=== PATIENT | female | born 1960 | race African-American/Black ===

== ENCOUNTER 2017-01-30 13:05 | Inpatient (IN) | payer OTHER ==
[2017-01-30 14:05] VITALS: BMI 20.5
--- NOTE | 2017-01-30 17:07 | HP ---
Admission [facility] Chief Complaint: REHAB TX FOR DRUG ADDICTION Allergies/Adverse Reactions: Allergies Allergy/AdvReac Type Severity Reaction Status Date / Time No Known Allergies Allergy Verified 01/30/17 16:54 History of Present Illness: 56 Y/O AA/FEMALE WITH A HX OF COCAINE,MARIJUANA AND PCP DEPENDENCE SEEKING DETOX TX. Exam Limitations: No Limitations - Ebola screening Have you traveled outside of the country in the last 21 days: No Have you had contact with anyone from an Ebola affected area: No Have you been sick,other than usual withdrawal symptoms: No Do you have a fever: No - Review of Systems Constitutional: Chills, Loss of Appetite, Night Sweats, Changes in sleep, Unintentional Wgt. Loss EENT: reports: Blurred Vision, Nose Congestion, Dental Problems (MISSING TEETH) Respiratory: reports: Shortness of Breath (HX ASTHMA), Wheezing Cardiac: reports: Lightheadedness GI: reports: Constipated, Poor Appetite, Poor Fluid Intake, Abdominal cramping : reports: No Symptoms Reported Musculoskeletal: reports: No Symptoms Reported Integumentary: reports: Dryness Neuro: reports: Headache, Seizure (LAST WAS A MONTH AGO), Unsteady Gait Endocrine: reports: No Symptoms Reported Hematology: reports: No Symptoms Reported Psychiatric: reports: Orientated x3, Anxious, Depressed Other Systems: Reviewed and Negative Patient History - Patient Medical History Hx Anemia: No Hx Asthma: Yes Hx Chronic Obstructive Pulmonary Disease (COPD): No Hx Cardiac Disorders: No Hx Hypertension: No Hx Hypercholesterolemia: No HX Cerebrovascular Accident: No Hx Seizures: Yes (RECENT EPISODE-LAST MONTH) Hx Diabetes: No Hx Gastrointestinal Disorders: No Hx Genitourinary Disorders: Yes (HX UTI) Hx Sexually Transmitted Disorders: Yes (HX GONORRHEA WITH TX) Hx Renal Disease (ESRD): No Hx Thyroid Disease: No Hx Human Immunodeficiency Virus (HIV): Yes (SINCE 1997;ON MEDS) Hx Hepatitis C: No Hx Depression: Yes Hx Suicide Attempt: No (DENIES) Hx Bipolar Disorder: No Hx Schizophrenia: No - Patient Surgical History Past Surgical History: Yes Hx Neurologic Surgery: No Hx Cataract Extraction: No Hx Cardiac Surgery: No Hx Lung Surgery: No Hx Breast Surgery: No Hx Breast Biopsy: No Hx Abdominal Surgery: No Hx Appendectomy: No Hx Cholecystectomy: No Hx Genitourinary Surgery: No Hx Section: No Hx Orthopedic Surgery: No Hx Hysterectomy: No Other Surgical History: TUBAL LIGATION 04/1997 Anesthesia Reaction: No - PPD History Previous Implant?: Yes Documented Results: Negative w/o proof Implanted On Prior [facility] Admission?: No PPD to be Administered?: Yes - Reproductive History Patient is a Female of Child Bearing Age (11 -55 yrs old): Yes LMP comment: 4 YRS AGO Patient : No - Smoking Cessation Smoking history: Current every day smoker Have you smoked in the past 12 months: Yes Aproximately how many cigarettes per day: 4 Hx Chewing Tobacco Use: No Initiated information on smoking cessation: Yes 'Breaking Loose' booklet given: 01/30/17 - Substance & Tx. History Hx Alcohol Use: No Hx Substance Use: Yes (COCAINE/MARIJUANA) Substance Use Type: Cocaine, Marijuana Hx Substance Use Treatment: Yes (LAST TX AT [facility]) - Substances Abused Crack Route: Smoking Frequency: Daily Amount used: 9-10 BAGS Age of first use: 25 Date of Last Use: 01/28/17 Marijuana/Hashish Route: Smoking Frequency: Daily Amount used: 3-9 BLUNTS Age of first use: 12 Date of Last Use: 01/29/17 Family Disease History - Family Disease History Family History: Denies Admission Physical Exam S - Vital Signs Vital Signs: Vital Signs - 24 hr 01/30/17 14:00 Temperature 97.9 F Pulse Rate 70 Respiratory 18 Rate Blood Pressure 103/74 - Physical General Appearance: Yes: No Apparent Distress, Moderate Distress, Irritable, Anxious HEENTM: Yes: EOMI, Normocephalic, EMANUEL, Nasal Congestion Respiratory: Yes: Chest Non-Tender, Lungs Clear, Normal Breath Sounds Neck: Yes: No masses,lesions,Nodules, Supple, Trachea in good position Breast: Yes: Breast Exam Deferred Cardiology: Yes: Regular Rhythm, Regular Rate, S1, S2 Abdominal: Yes: Normal Bowel Sounds, Non Tender, Flat Genitourinary: Yes: Other (N/C) Musculoskeletal: Yes: Within Normal Limits Extremities: Yes: Normal Range of Motion, Non-Tender 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: 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 II-XII NML intact, Fully Oriented, Alert, Motor Strength 5/5 Integumentary: Yes: Dry, Warm Lymphatic: Yes: Within Normal Limits - Diagnostic (1) History of constipation Current Visit: Yes Status: Chronic (2) Cannabis dependence, uncomplicated Current Visit: Yes Status: Acute (3) Cocaine dependence, uncomplicated Current Visit: Yes Status: Acute (4) Asthma Current Visit: Yes Status: Chronic Qualifiers: Asthma severity: unspecified severity Asthma persistence: unspecified Asthma complication type: unspecified Qualified Code(s): J45.909 - Unspecified asthma, uncomplicated (5) HIV (human immunodeficiency virus infection) Current Visit: Yes Status: Chronic (6) Rhinitis, allergic, with asthma, without status asthmaticus Current Visit: Yes Status: Chronic Qualifiers: Asthma severity: mild Asthma persistence: persistent [facility] - Detox or Rehab Claeared for Rehab Admission: Yes [facility] Breath Alcohol Content Breath Alcohol Content: 0 Urine Pregancy Test - Result Urine Test Results: Negative- NO Line Present Urine Drug Screen - Results Drug Screen Negative: No Urine Drug Screen Results: THC-Marijuana, MAMTA-Cocaine, PCP-Phencyclidine Inpatient Rehab Admission - Initial Determination Are CD services needed?: Yes Free of communicable disease: Yes Not in need of hospitalization: Yes - Rehab Admission Criteria Patient is meeting Inpatient Rehab admission criteria:: Yes
[2017-01-30] MEDS ORDERED: MENTHOL/PHENOL 1 EACH UD MM PRN (18:01)
[2017-01-30] MEDS ORDERED: P-EPHED 60MG/TRIPROLIDI 2.5MG TABLET PO PRN (18:01)
[2017-01-30] MEDS ORDERED: IBUPROFEN 400 MG TABLET (FP) PO PRN (18:01)
[2017-01-30] MEDS ORDERED: NICOTINE POLACRILEX 2 MG GUM BC PRN (18:01)
[2017-01-30] MEDS ORDERED: LOPERAMIDE HCL 2 MG CAPSULE PO PRN (18:01)
[2017-01-30] MEDS ORDERED: MAG HYDROX/AL HYDROX/SIMETH 30 ML UNIT-DOSE CUP PO PRN (18:01)
[2017-01-30] MEDS ORDERED: ACETAMINOPHEN 325 MG TABLET (FP) PO PRN (18:01)
[2017-01-30] MEDS ORDERED: MAGNESIUM CITRATE 300 ML BOTTLE PO PRN (18:01)
[2017-01-30] MEDS ORDERED: guaiFENesin/D-METHORPHAN HB 10 ML UNIT-DOSE CUPS PO PRN (18:01)
[2017-01-30] MEDS ORDERED: TUBERCULIN PPD 5 TU/0.1ML VIAL ID ONE (20:02)
[2017-01-30] MEDS: PATIENT'S OWN MEDICATION (NON-FORMULARY) (Cetirizine Hcl [Cetirizine Hcl] 10 MG) PO SCH (21:28)
[2017-01-30] MEDS: EMTRICITABINE/TENOFOV ALAFENAM (DESCOVY) TABLET PO SCH (21:48)
[2017-01-30] MEDS: THIAMINE HCL 100 MG TABLET (FP) PO SCH (21:49)
[2017-01-30] MEDS: NICOTINE 14 MG/24 HOURS TOPICAL PATCH TD SCH (21:49)
[2017-01-30] MEDS: DOLUTEGRAVIR SODIUM 50 MG TABLET PO SCH (21:49)
[2017-01-31 01:29] LABS: URINE APPEARANCE SLCLOUDY; URINE BILIRUBIN NEGATIVE (NEGATIVE); URINE BLOOD NEGATIVE (NEGATIVE); URINE COLOR YELLOW; URINE GLUCOSE (UA) NEGATIVE (NEGATIVE); URINE KETONE NEGATIVE (NEGATIVE); URINE LEUK ESTERASE NEGATIVE (NEGATIVE); URINE NITRITE NEGATIVE (NEGATIVE); URINE PROTEIN NEGATIVE (NEGATIVE); URINE UROBILINOGEN NEGATIVE mg/dL (0.2-1.0)
[2017-01-31] MEDS: lamoTRIgine 100 MG TABLET (FP) PO SCH ×3 (06:18→21:29)
[2017-01-31] MEDS: DOLUTEGRAVIR SODIUM 50 MG TABLET PO SCH (09:05)
[2017-01-31] MEDS: EMTRICITABINE/TENOFOV ALAFENAM (DESCOVY) TABLET PO SCH (09:05)
[2017-01-31] MEDS: PRENATAL VITAMINS W/ FOLIC ACID TABLET (FP) PO SCH (09:06)
[2017-01-31] MEDS: NICOTINE 14 MG/24 HOURS TOPICAL PATCH TD SCH (09:07)
[2017-01-31] MEDS: PATIENT'S OWN MEDICATION (NON-FORMULARY) (Cetirizine Hcl [Cetirizine Hcl] 10 MG) PO SCH (09:26)
[2017-01-31 09:59] LABS: URINE LEUK ESTERASE Negative (NEGATIVE)
[2017-01-31 10:04] LABS: MCH 28.1 pg (25.7-33.7); MCHC 31.2 g/dl (32.0-36.0); MEAN CELL VOLUME 89.9 fl (80-96); MEAN PLT VOLUME 9.2 fl (7.5-11.1); PLATELET COUNT 162 K/MM3 (134-434); RDW 15.8 % (11.6-15.6); WHITE BLOOD COUNT 3.6 K/mm3 (4.0-10.0)
--- NOTE | 2017-01-31 10:10 | EKG ---
Test Reason : Blood Pressure : / mmHG Vent. Rate : 058 BPM Atrial Rate : 058 BPM P-R Int : 132 ms QRS Dur : 076 ms QT Int : 404 ms P-R-T Axes : 078 074 059 degrees QTc Int : 396 ms SINUS BRADYCARDIA OTHERWISE NORMAL ECG NO PREVIOUS ECGS AVAILABLE Confirmed by PHYLICIA FERGUSON, MERCY ([id number]) on 01/31/2017 10:09:33 AM Referred By: Confirmed By:MERCY WHATLEY MD
[2017-01-31 10:16] LABS: ALBUMIN 3.6 g/dl (3.4-5.0); ANION GAP 3 (8-16); BILIRUBIN,TOTAL 0.4 mg/dL (0.2-1.0); CALCIUM 8.8 mg/dL (8.5-10.1); CO2 29 mmol/L (21-32); CREATININE 1.1 mg/dL (0.55-1.02); GLUCOSE,RANDOM 86 mg/dL (74-106); SGOT/AST 27 U/L (15-37); SGPT/ALT 26 U/L (12-78); TOT PROT 7.8 g/dl (6.4-8.2)
[2017-01-31 10:17] LABS: ALK PHOS 81 U/L (45-117)
[2017-01-31 10:24] LABS: SICKLE CELL SCREEN NEGATIVE (NEGATIVE)
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
[2017-01-31] MEDS: THIAMINE HCL 100 MG TABLET (FP) PO SCH (21:29)
[2017-02-01] MEDS: lamoTRIgine 100 MG TABLET (FP) PO SCH ×3 (06:04→21:43)
[2017-02-01] MEDS: PATIENT'S OWN MEDICATION (NON-FORMULARY) (Cetirizine Hcl [Cetirizine Hcl] 10 MG) PO SCH (09:56)
[2017-02-01] MEDS: EMTRICITABINE/TENOFOV ALAFENAM (DESCOVY) TABLET PO SCH (09:57)
[2017-02-01] MEDS: DOLUTEGRAVIR SODIUM 50 MG TABLET PO SCH (09:57)
[2017-02-01] MEDS: PRENATAL VITAMINS W/ FOLIC ACID TABLET (FP) PO SCH (09:58)
[2017-02-01] MEDS: NICOTINE 14 MG/24 HOURS TOPICAL PATCH TD SCH (09:58)
[2017-02-01] MEDS: THIAMINE HCL 100 MG TABLET (FP) PO SCH (21:43)
[2017-02-02] MEDS: lamoTRIgine 100 MG TABLET (FP) PO SCH ×3 (06:40→21:49)
[2017-02-02] MEDS: DOLUTEGRAVIR SODIUM 50 MG TABLET PO SCH (10:32)
[2017-02-02] MEDS: EMTRICITABINE/TENOFOV ALAFENAM (DESCOVY) TABLET PO SCH (10:32)
[2017-02-02] MEDS: PATIENT'S OWN MEDICATION (NON-FORMULARY) (Cetirizine Hcl [Cetirizine Hcl] 10 MG) PO SCH (10:32)
[2017-02-02] MEDS: PRENATAL VITAMINS W/ FOLIC ACID TABLET (FP) PO SCH (10:32)
[2017-02-02] MEDS: NICOTINE 14 MG/24 HOURS TOPICAL PATCH TD SCH (10:32)
[2017-02-02] MEDS ORDERED: hydrOXYzine PAMOATE 50 MG CAPSULE (FP) PO PRN (11:09)
--- NOTE | 2017-02-02 11:34 | PN ---
Psychiatric Progress Note Vital Signs: Vital Signs Period Temp Pulse Resp BP Sys/Poole Pulse Ox Last 24 Hr 97.7 F 55 16-16 128/73 Date of Session: 02/02/17 Chief Complaint:: I am anxious,sleep is the problem too. HPI: Patient addressed Cocaine and Cannabis dependence comorbid with substance induced mood disorder. ROS: Significant for Seizure disorder,BA,HIV+. Current Medications: Active Medications Generic Name Dose Route Start Last Admin Trade Name Freq PRN Reason Stop Dose Admin Acetaminophen 650 mg 01/30/17 18:01 Tylenol - PO Q4H PRN PAIN Al Hydroxide/Mg Hydroxide 30 ml 01/30/17 18:01 Mylanta Oral Suspension - PO Q6H PRN DYSPEPSIA Eucalyptus/Menthol/Phenol/Sorbitol 1 each 01/30/17 18:01 Cepastat Lozenge - MM Q4H PRN SORE THROAT Guaifenesin 10 ml 01/30/17 18:01 Robitussin Dm - PO Q6H PRN COUGH Hydroxyzine Pamoate 50 mg 02/02/17 11:09 Vistaril - PO Q4H PRN ANXIETY Ibuprofen 400 mg 01/30/17 18:01 01/31/17 09:05 Motrin - PO 400 mg Q6H PRN Administration SEVERE PAIN Lamotrigine 200 mg 01/31/17 06:00 02/02/17 06:40 Lamictal - PO 200 mg TID MARY Administration Loperamide HCl 4 mg 01/30/17 18:01 Imodium - PO Q6H PRN DIARRHEA Magnesium Citrate 300 ml 01/30/17 18:01 Citroma - PO Q48H PRN CONSTIPATION Magnesium Hydroxide 30 ml 01/30/17 18:01 Milk Of Magnesia - PO DAILY PRN CONSTIPATION Nicotine 14 mg 01/30/17 18:15 02/02/17 10:32 Nicoderm Patch - TD 14 mg DAILY MARY Administration Nicotine Polacrilex 2 mg 01/30/17 18:01 Nicorette Gum - BC Q2H PRN NICOTINE REPLACEMENT RX Non-Formulary Medication 10 mg 01/30/17 18:15 02/02/17 10:32 Cetirizine Hcl [Cetirizine Hcl] PO 10 mg DAILY MARY Administration Olanzapine 2.5 mg 02/02/17 11:15 Zyprexa - PO BID MARY Multivit/Folic Acid/Iron 1 tab 01/31/17 10:00 02/02/17 10:32 Vitamins (Sjr) - PO 1 tab DAILY MARY Administration Thiamine HCl 100 mg 01/30/17 22:00 02/01/17 21:43 Vitamin B1 - PO 100 mg HS MARY Administration Current Side Effect: No Lab tests ordered: No Lab tests reviewed: Yes Provider note:: Chart was revuewed,patient was seen ,treatment plan including medication management has been discussed with the patient.She addressed anxiety during the day and sleeping difficulties.Patient reports that she was taking Zyprexa in the past with good effect. Properties of Zyprexa has been discussed with the patient including side effects,benefits,dose adjustment. Zyprexa 2,5 mg po bid will be started today. Supportive therapy provided. Total face to face time:: 30 Mental Status Exam - Mental Status Exam Alert and Oriented to: Time, Place, Person Cognitive Function: Grossly Intact Patient Appearance: Well Groomed Mood: Anxious Affect: Mood Congruent, Labile Patient Behavior: Cooperative Speech Pattern: Clear Voice Loudness: Normal Thought Process: Goal Oriented Thought Disorder: Not Present Hallucinations: Denies Suicidal Ideation: Denies Homicidal Ideation: Denies Insight/Judgement: Fair Sleep: Difficulty falling asleep Appetite: Good Muscle strength/Tone: Normal Gait/Station: Normal Psychiatric Treatment Plan - Problem List (1) Cannabis dependence, uncomplicated Current Visit: Yes (2) Cocaine dependence, uncomplicated Current Visit: Yes (3) Asthma Current Visit: Yes Qualifiers: Asthma severity: unspecified severity Asthma persistence: unspecified Asthma complication type: unspecified Qualified Code(s): J45.909 - Unspecified asthma, uncomplicated (4) HIV (human immunodeficiency virus infection) Current Visit: Yes (5) Seizure disorder Current Visit: Yes (6) Substance induced mood disorder Current Visit: Yes
[2017-02-02] MEDS ORDERED: PT OWN MED DRAWER 7, Y5N ONE (12:08)
[2017-02-02] MEDS: OLANZapine 2.5 MG TABLET PO SCH ×2 (12:35→21:49)
[2017-02-02] MEDS: THIAMINE HCL 100 MG TABLET (FP) PO SCH (21:49)
[2017-02-03] MEDS: lamoTRIgine 100 MG TABLET (FP) PO SCH ×3 (06:40→21:43)
[2017-02-03] MEDS ORDERED: PT OWN MED DRAWER 7, Y5N ONE (08:49)
[2017-02-03] MEDS: NICOTINE 14 MG/24 HOURS TOPICAL PATCH TD SCH (09:58)
[2017-02-03] MEDS: DOLUTEGRAVIR SODIUM 50 MG TABLET PO SCH (09:58)
[2017-02-03] MEDS: EMTRICITABINE/TENOFOV ALAFENAM (DESCOVY) TABLET PO SCH (09:58)
[2017-02-03] MEDS: OLANZapine 2.5 MG TABLET PO SCH ×2 (09:58→21:43)
[2017-02-03] MEDS: PATIENT'S OWN MEDICATION (NON-FORMULARY) (Cetirizine Hcl [Cetirizine Hcl] 10 MG) PO SCH (09:58)
[2017-02-03] MEDS: PRENATAL VITAMINS W/ FOLIC ACID TABLET (FP) PO SCH (09:58)
[2017-02-03] MEDS: THIAMINE HCL 100 MG TABLET (FP) PO SCH (21:43)
[2017-02-04] MEDS: lamoTRIgine 100 MG TABLET (FP) PO SCH ×3 (06:45→21:43)
[2017-02-04] MEDS: OLANZapine 2.5 MG TABLET PO SCH ×2 (10:13→21:43)
[2017-02-04] MEDS: PATIENT'S OWN MEDICATION (NON-FORMULARY) (Cetirizine Hcl [Cetirizine Hcl] 10 MG) PO SCH (10:13)
[2017-02-04] MEDS: PRENATAL VITAMINS W/ FOLIC ACID TABLET (FP) PO SCH (10:13)
[2017-02-04] MEDS: NICOTINE 14 MG/24 HOURS TOPICAL PATCH TD SCH (10:13)
[2017-02-04] MEDS: EMTRICITABINE/TENOFOV ALAFENAM (DESCOVY) TABLET PO SCH (10:14)
[2017-02-04] MEDS: DOLUTEGRAVIR SODIUM 50 MG TABLET PO SCH (10:14)
[2017-02-04] MEDS ORDERED: PT OWN MED DRAWER 7, Y5N ONE (12:51)
[2017-02-04] MEDS: MAGNESIUM HYDROX 2400MG/30ML ORAL SUSPENSION 30 ML CUP PO PRN (13:41)
[2017-02-04] MEDS: THIAMINE HCL 100 MG TABLET (FP) PO SCH (21:43)
[2017-02-05] MEDS ORDERED: PT OWN MED DRAWER 7, Y5N ONE ×3 (05:53→13:58)
[2017-02-05] MEDS: lamoTRIgine 100 MG TABLET (FP) PO SCH ×3 (06:35→21:38)
[2017-02-05] MEDS: PATIENT'S OWN MEDICATION (NON-FORMULARY) (Cetirizine Hcl [Cetirizine Hcl] 10 MG) PO SCH (10:02)
[2017-02-05] MEDS: OLANZapine 2.5 MG TABLET PO SCH ×2 (10:03→21:37)
[2017-02-05] MEDS: PRENATAL VITAMINS W/ FOLIC ACID TABLET (FP) PO SCH (10:03)
[2017-02-05] MEDS: DOLUTEGRAVIR SODIUM 50 MG TABLET PO SCH (10:03)
[2017-02-05] MEDS: EMTRICITABINE/TENOFOV ALAFENAM (DESCOVY) TABLET PO SCH (10:03)
[2017-02-05] MEDS: NICOTINE 14 MG/24 HOURS TOPICAL PATCH TD SCH (10:03)
[2017-02-05] MEDS: THIAMINE HCL 100 MG TABLET (FP) PO SCH (21:37)
[2017-02-05] MEDS: MAGNESIUM HYDROX 2400MG/30ML ORAL SUSPENSION 30 ML CUP PO PRN (22:22)
[2017-02-06] MEDS: lamoTRIgine 100 MG TABLET (FP) PO SCH ×3 (06:03→21:14)
[2017-02-06] MEDS: EMTRICITABINE/TENOFOV ALAFENAM (DESCOVY) TABLET PO SCH (10:01)
[2017-02-06] MEDS: NICOTINE 14 MG/24 HOURS TOPICAL PATCH TD SCH (10:01)
[2017-02-06] MEDS: PATIENT'S OWN MEDICATION (NON-FORMULARY) (Cetirizine Hcl [Cetirizine Hcl] 10 MG) PO SCH (10:01)
[2017-02-06] MEDS: PRENATAL VITAMINS W/ FOLIC ACID TABLET (FP) PO SCH (10:02)
[2017-02-06] MEDS: DOLUTEGRAVIR SODIUM 50 MG TABLET PO SCH (10:02)
[2017-02-06] MEDS: OLANZapine 2.5 MG TABLET PO SCH ×2 (10:02→21:14)
[2017-02-06] MEDS: THIAMINE HCL 100 MG TABLET (FP) PO SCH (21:14)
[2017-02-07] MEDS: lamoTRIgine 100 MG TABLET (FP) PO SCH (06:25)
[2017-02-07 07:17] VITALS: BP 129/82; PULSE 54; TEMP 97.8
[2017-02-07] MEDS: OLANZapine 2.5 MG TABLET PO SCH (10:20)
[2017-02-07] MEDS: PRENATAL VITAMINS W/ FOLIC ACID TABLET (FP) PO SCH (10:20)
[2017-02-07] MEDS: PATIENT'S OWN MEDICATION (NON-FORMULARY) (Cetirizine Hcl [Cetirizine Hcl] 10 MG) PO SCH (10:20)
[2017-02-07] MEDS: NICOTINE 14 MG/24 HOURS TOPICAL PATCH TD SCH (10:21)
[2017-02-07] MEDS: EMTRICITABINE/TENOFOV ALAFENAM (DESCOVY) TABLET PO SCH (10:21)
[2017-02-07] MEDS: DOLUTEGRAVIR SODIUM 50 MG TABLET PO SCH (10:21)
[2017-02-07] MEDS ORDERED: PT OWN MED DRAWER 7, Y5N ONE (11:47)
--- NOTE | 2017-02-07 11:54 | PN ---
Psychiatric Progress Note Vital Signs: Vital Signs Period Temp Pulse Resp BP Sys/Poole Pulse Ox Last 24 Hr 97.8 F 54 18-18 129/82 Date of Session: 02/07/17 Chief Complaint:: Discharge visit HPI: Patient addressed Alcohol,Cocaine dependence comorbid with Substance induced mood disorder. ROS: Significant for HIV+,BA,Seizure disorder. Current Medications: Active Medications Generic Name Dose Route Start Last Admin Trade Name Freq PRN Reason Stop Dose Admin Acetaminophen 650 mg 01/30/17 18:01 Tylenol - PO Q4H PRN PAIN Al Hydroxide/Mg Hydroxide 30 ml 01/30/17 18:01 Mylanta Oral Suspension - PO Q6H PRN DYSPEPSIA Eucalyptus/Menthol/Phenol/Sorbitol 1 each 01/30/17 18:01 Cepastat Lozenge - MM Q4H PRN SORE THROAT Guaifenesin 10 ml 01/30/17 18:01 Robitussin Dm - PO Q6H PRN COUGH Hydroxyzine Pamoate 50 mg 02/02/17 11:09 02/02/17 12:38 Vistaril - PO 50 mg Q4H PRN Administration ANXIETY Ibuprofen 400 mg 01/30/17 18:01 01/31/17 09:05 Motrin - PO 400 mg Q6H PRN Administration SEVERE PAIN Lamotrigine 200 mg 01/31/17 06:00 02/07/17 06:25 Lamictal - PO 200 mg TID MARY Administration Loperamide HCl 4 mg 01/30/17 18:01 Imodium - PO Q6H PRN DIARRHEA Magnesium Citrate 300 ml 01/30/17 18:01 02/06/17 07:17 Citroma - PO 300 ml Q48H PRN Administration CONSTIPATION Magnesium Hydroxide 30 ml 01/30/17 18:01 02/05/17 22:22 Milk Of Magnesia - PO 30 ml DAILY PRN Administration CONSTIPATION Nicotine 14 mg 01/30/17 18:15 02/07/17 10:21 Nicoderm Patch - TD 14 mg DAILY MARY Administration Nicotine Polacrilex 2 mg 01/30/17 18:01 Nicorette Gum - BC Q2H PRN NICOTINE REPLACEMENT RX Non-Formulary Medication 10 mg 01/30/17 18:15 02/07/17 10:20 Cetirizine Hcl [Cetirizine Hcl] PO 10 mg DAILY MARY Administration Olanzapine 2.5 mg 02/02/17 12:30 02/07/17 10:20 Zyprexa - PO 2.5 mg BID MARY Administration Multivit/Folic Acid/Iron 1 tab 01/31/17 10:00 02/07/17 10:20 Vitamins (Sjr) - PO 1 tab DAILY MARY Administration Thiamine HCl 100 mg 01/30/17 22:00 02/06/17 21:14 Vitamin B1 - PO 100 mg HS MARY Administration Current Side Effect: No Lab tests ordered: No Lab tests reviewed: Yes Provider note:: Patient decided to sign out today despite medical staff's recommendations to continue futher stsabilization on inpatient basis.She didnt met her treatment goals.Lamictal 200 mg po tid and Zyprexa 2,5 mg po bid. Supportive therapy provided. Total face to face time:: 20 Mental Status Exam - Mental Status Exam Alert and Oriented to: Time, Place, Person Cognitive Function: Grossly Intact Patient Appearance: Unkempt Mood: Irritable Affect: Mood Congruent Patient Behavior: Resitive to Care Speech Pattern: Clear Voice Loudness: Normal Thought Process: Goal Oriented Thought Disorder: Not Present Hallucinations: Denies Suicidal Ideation: Denies Homicidal Ideation: Denies Insight/Judgement: Poor Sleep: Fair Appetite: Good Muscle strength/Tone: Normal Gait/Station: Normal Psychiatric Treatment Plan - Problem List (3) Asthma Qualifiers: Asthma severity: unspecified severity Asthma persistence: unspecified Asthma complication type: unspecified Qualified Code(s): J45.909 - Unspecified asthma, uncomplicated
== END 2017-02-07 11:50 | disposition left against medical advice (07) | DRG 770 ==
LOC: YASAS 13:05 → Y3E 18:17
PROVIDERS: ADMIT Psychiatry & Neurology Psychiatry; ATTEND Psychiatry & Neurology Psychiatry
PROC: HZ42ZZZ Group Counseling for Substance Abuse Treatment, Cognitive-Behavioral (ICD-10-PCS; principal; 2017-01-30)
DX: F14.20 Cocaine dependence, uncomplicated (principal); F12.20 Cannabis dependence, uncomplicated; F19.24 Other psychoactive substance dependence with psychoactive substance-induced mood disorder; J45.909 Unspecified asthma, uncomplicated; Z21 Asymptomatic human immunodeficiency virus [HIV] infection status; G40.909 Epilepsy, unspecified, not intractable, without status epilepticus; Z87.42 Personal history of other diseases of the female genital tract
CPT/HCPCS: 36415; 80053; 81003; 85027; 85660; 86593; 93005; 93010